=== PATIENT | male | born 1990 | race African-American/Black ===

== ENCOUNTER 2019-08-13 21:06 | Emergency (ER) | payer SELFPAY ==
[2019-08-13 22:00] LABS: ABSOLUTE EOSINOPHILS # (AUTO) 0.1 10^3/uL (0.0-0.6); ABSOLUTE LYMPHOCYTES (AUTO) 2.1 10^3/uL (0.5-4.7); ABSOLUTE MONOCYTES (AUTO) 0.2 10^3/uL (0.1-1.4); ABSOLUTE NEUT (AUTO) 1.3 10^3/uL (1.7-8.2); EOSINOPHILS % (AUTO) 2.6 % (0-6); HEMATOCRIT 38.8 % (37.9-51.0); HEMOGLOBIN 13.3 g/dL (13.5-17.0); LYMPHOCYTES % (AUTO) 54.4 % (13-45); MEAN CORPUSCULAR HEMOGLOBIN 31.6 pg (27.0-33.4); MEAN CORPUSCULAR HGB CONC 34.3 g/dL (32.0-36.0); MEAN CORPUSCULAR VOLUME 92 fl (80-97); MONOCYTES % (AUTO) 6.5 % (3-13); PLATELET COUNT 195 10^3/uL (150-450); RED BLOOD COUNT 4.22 10^6/uL (4.35-5.55); RED CELL DISTRIBUTION WIDTH 13.1 % (11.5-14.0); SEGMENTED NEUTROPHILS % (AUTO) 35.5 % (42-78); TOTAL CELLS COUNTED % (AUTO) 100 %; WHITE BLOOD COUNT 3.8 10^3/uL (4.0-10.5)
[2019-08-13 22:15] LABS: ALBUMIN 3.7 g/dL (3.5-5.0); ALKALINE PHOSPHATASE 48 U/L (38-126); ASPARTATE AMINO TRANSFERASE 169 U/L (17-59); BILIRUBIN,TOTAL 0.4 mg/dL (0.2-1.3); BLOOD UREA NITROGEN 23 mg/dL (7-20); CALCIUM 8.6 mg/dL (8.4-10.2); GLUCOSE 93 mg/dL (75-110); POTASSIUM 3.6 mmol/L (3.6-5.0); TOTAL PROTEIN 6.2 g/dL (6.3-8.2)
[2019-08-13 22:20] LABS: CARBON DIOXIDE 28 mmol/L (22-30); CHLORIDE 106 mmol/L (98-107)
[2019-08-13 22:30] LABS: ALCOHOL < 10 mg/dL (NONE DETECTED); ANION GAP 3 (5-19)
--- NOTE | 2019-08-13 23:39 | RADIOLOGY REPORT (SQ) ---
CLINICAL HISTORY: possible seizure COMPARISON: None. TECHNIQUE: CT HEAD WITHOUT IV CONTRAST on 08/13/2019 12:00 AM CDT This exam was performed according to our departmental dose-optimization program, which includes automated exposure control, adjustment of the mA and/or kV according to patient size and/or use of iterative reconstruction technique. FINDINGS: There is no acute hemorrhage, mass effect or midline shift. Stewart-white differentiation is preserved. There is no hydrocephalus. There is no significant volume loss for age. The calvarium is intact. Orbits and globes are unremarkable. The paranasal sinuses are clear. Mastoid air cells are clear. IMPRESSION: No acute intracranial findings.
--- NOTE | 2019-08-13 23:53 | ER Document Report ---
ED Seizure - General Chief Complaint: Probable Seizure Stated Complaint: POSSIBLE SEIZURE Time Seen by Provider: 08/13/19 23:27 Notes: CHIEF COMPLAINT: Possible seizure HPI: 29-year-old male who is otherwise healthy presenting for evaluation of possible seizure today. Patient states that he had been working outside did have several beers and did not drink a lot of fluids today. He went to a [employer] with his significant other, he states he got out of the car quickly and immediately felt things going black. He then fell to the ground and apparently had jerking activity. No incontinence of urine or bowel. No prior history of seizures. No fever or recent illness. Patient states that he did arouse and did not feel confused when he "woke up". He was then brought to the emergency department for evaluation. Patient states he did bite his tongue. ROS: See HPI - all other systems were reviewed and are otherwise negative Constitutional: no fever Eyes: no drainage, no blurred vision ENT: no runny nose, no sore throat positive tongue pain Cardiovascular: no chest pain Resp: no SOB, no cough GI: no vomiting, no diarrhea, no abdominal pain : no dysuria Integumentary: no rash Allergy: no hives Musculoskeletal: no extremity pain or swelling Neurological: no numbness/tingling, no weakness MEDICATIONS: I agree with the patient medications as charted by the RN. ALLERGIES: I agree with the allergies as charted by the RN. PAST MEDICAL HISTORY/PAST SURGICAL HISTORY: Reviewed and agree as charted by RN. SOCIAL HISTORY: Reviewed and agree as charted by RN. FAMILY HISTORY: No significant familial comorbid conditions directly related to patient complaint EXAM: Reviewed vital signs as charted by RN. CONSTITUTIONAL: Alert and oriented and responds appropriately to questions. Well-appearing; well-nourished HEAD: Normocephalic; atraumatic EYES: PERRL; Conjunctivae clear, sclerae non-icteric ENT: normal nose; no rhinorrhea; moist mucous membranes; pharynx without lesions noted, no uvula edema or deviation, no tonsillar hypertrophy, phonation normal. There is a very superficial laceration to the lateral aspect of the left tongue measuring approximately 3 mm, it is not bleeding. NECK: Supple without meningismus; non-tender; no cervical lymphadenopathy, no masses CARD: RRR; no murmurs, no clicks, no rubs, no gallops; symmetric distal pulses RESP: Normal chest excursion without splinting or tachypnea; breath sounds clear and equal bilaterally; no wheezes, no rhonchi, no rales, pulse oximetry ABD/GI: Normal bowel sounds; non-distended; soft, non-tender, no rebound, no guarding; no palpable organomegaly or masses. BACK: The back appears normal and is non-tender to palpation, there is no CVA tenderness EXT: Normal ROM in all joints; non-tender to palpation; no cyanosis, no effusions, no edema SKIN: Normal color for age and race; warm; dry; good turgor; no acute lesions noted NEURO: Moves all extremities equally; Motor and sensory function intact PSYCH: The patient's mood and manner are appropriate. Grooming and personal hygiene are appropriate. MDM: 29-year-old male presenting for possible seizure activity. Patient did not drink lots of fluids today did drink alcohol. Patient passed out when standing up quickly likely had a vasovagal response with accompanying generalized tonic- clonic type activity mimicking a seizure. He has no family history of seizures. No head injury. He did bite his tongue. No incontinence. Did not wake up post ictal. Discussed at length with the patient initial screening work-up is negative including CT and labs. Awaiting urinalysis. If negative he is alert and oriented x3 having no active seizure activity here in the emergency department will discharge to follow-up with neurology. Although I believe it is more likely this was a vasovagal response I did talk to the patient about not driving until he is cleared by neurology. He lives in [place] and I will refer him to neurology here but he may also choose to follow-up with 1 there he verbalizes understanding of this - Related Data Allergies/Adverse Reactions: No Known Allergies Allergy (Unverified 08/14/19 00:07) Past Medical History - Social History Smoking Status: Current Every Day Smoker Frequency of alcohol use: Occasional Drug Abuse: None Family History: Reviewed & Not Pertinent Patient has homicidal ideation: No Physical Exam - Vital signs Vitals: Temp Resp Pulse Ox 97.6 F 14 97 08/13/19 21:16 08/13/19 21:16 08/13/19 21:16 Course - Re-evaluation Re-evalutation: 08/14/19 00:43 No acute distress, urine does not show evidence of infection we will plan to discharge home to follow-up with neurology - Vital Signs Vital signs: Temp Pulse Resp BP Pulse Ox 97.6 F 12 117/63 97 08/13/19 21:20 08/13/19 21:17 08/13/19 21:17 08/13/19 21:17 - Laboratory Result Diagrams: 08/13/19 21:40 08/13/19 21:40 Laboratory results interpreted by me: 08/13/19 08/13/19 08/14/19 21:40 21:40 00:08 WBC 3.8 L RBC 4.22 L Hgb 13.3 L Lymph % (Auto) 54.4 H Absolute Neuts (auto) 1.3 L Seg Neutrophils % 35.5 L Anion Gap 3 L BUN 23 H AST 169 H ALT 107 H Total Protein 6.2 L Urine Protein 100 H Urine Blood SMALL H Urine Urobilinogen 2.0 H Discharge - Discharge Clinical Impression: Vasovagal syncope, Seizure-like activity Condition: Stable Disposition: HOME, SELF-CARE Additional Instructions: Make sure you are hydrating well at home. No driving until you are cleared by neurology as discussed. While it is more likely that your seizure-like activity was related to the vasovagal episode where you stood up too quickly and then passed out cannot completely rule out a true seizure. This will be done by neurology. You have been given a referral to a local neurologist but may also choose to follow-up in [place]. Return for any concerns Referrals: ALPA ALMODOVAR MD [COMMUNITY BASED STAFF] - Follow up as needed
[2019-08-14 00:24] LABS: APPEARANCE,URINE CLEAR; BILIRUBIN,URINE NEGATIVE (NEGATIVE); COLOR,URINE YELLOW; GLUCOSE, URINE NEGATIVE (NEGATIVE); KETONES,URINE NEGATIVE (NEGATIVE); LEUKOCYTE ESTERASE,URINE NEGATIVE (NEGATIVE); NITRITE,URINE NEGATIVE (NEGATIVE); PROTEIN,URINE 100 mg/dL (NEGATIVE); URINE SPECIFIC GRAVITY 1.024
[2019-08-14 00:43] LABS: URINE AMPHETAMINES SCREEN NEGATIVE; URINE BARBITURATES SCREEN NEGATIVE; URINE BENZODIAZEPINES SCREEN NEGATIVE; URINE COCAINE SCREEN NEGATIVE; URINE METHADONE SCREEN NEGATIVE; URINE PHENCYCLIDINE SCREEN NEGATIVE
[2019-08-14 00:48] LABS: URINE MARIJUANA (THC) SCREEN UNCONFIRMED POSITIVE
[2019-08-14 01:09] VITALS: BP 110/68
== END 2019-08-14 01:10 | disposition home or self-care (01) ==
LOC: ER 21:06
DX: R55 Syncope and collapse (principal); R25.1 Tremor, unspecified; W19.XXXA Unspecified fall, initial encounter; F17.200 Nicotine dependence, unspecified, uncomplicated
CPT/HCPCS: 36415; 70450; 80053; 80307; 81001; 83735; 85025; 99284